=== PATIENT | male | born 1950 ===

== ENCOUNTER 2023-06-22 17:49 | Emergency (ER) | payer MEDICARE ==
[~2023-06-22] VITALS: Ht 175.3 cm; Wt 68.0 kg
[2023-06-22] MEDS ORDERED: IV NORMAL SALINE 1000 ML BAG IV ONE (18:00)
[2023-06-22 18:07] VITALS: O2SAT 98
--- NOTE | 2023-06-22 18:35 | NUR ---
Removed IV intact, site okay, bandaged. Gave pt d/c instructions, pt verbalized understanding. Pt leaving AMA, refused to sign form.
== END 2023-06-22 18:42 | disposition left against medical advice (07) ==
LOC: ER 17:49
DX: E86.0 Dehydration (principal); J45.909 Unspecified asthma, uncomplicated
CPT/HCPCS: 93005; A4663